=== PATIENT | female | born 1965 | race African-American/Black ===

== ENCOUNTER 2017-10-01 08:12 | Emergency (ER) | payer MEDICAID, OTHER ==
[~2017-10-01] VITALS: Ht 167.6 cm; Wt 55.0 kg
[~2017-10-01 08:12] MED LIST: OTC TYLENOL; VALIUM
[2017-10-01] MEDS ORDERED: IPRATROPIUM/ALBUTEROL 0.5-3(2.5)MG/3ML NEB HHN ONE (08:45)
[2017-10-01] MEDS ORDERED: ASPIRIN 81MG TABLET PO ONE (08:45)
[2017-10-01] MEDS ORDERED: ACETAMINOPHEN 325MG TABLET PO ONE (08:45)
[2017-10-01 09:24] LABS: BASOPHILS % 0.2 % (0.0-2.0); EOSINOPHILS % 0.3 % (0.0-5.0); HEMATOCRIT. 39.5 % (36.0-48.0); HEMOGLOBIN. 12.9 g/dL (12.0-16.0); LYMPHOCYTES % 11.8 % (20.0-50.0); MEAN CORPUSCULAR HEMOGLOBIN 27.9 pg (28.0-32.0); MEAN PLATELET VOLUME 7.7 fl (7.4-10.4); NEUTROPHILS % 80.7 % (40.0-76.0); PLATELET 249 x1000/uL (130-400); RED BLOOD CELL COUNT 4.64 mill/uL (4.2-5.4); RED CELL DISTRIBUTION WIDTH 18.9 % (11.6-14.6)
[2017-10-01 09:31] LABS: CHLORIDE 106 mEq/L (98-107)
[2017-10-01 09:36] LABS: D-DIMER 1.22 mg/L FEU (<0.50); PARTIAL THROMBOPLASTIN TIME 30.1 sec (23.4-31.0); PROTHROMBIN TIME 10.8 sec (9.4-11.6)
[2017-10-01 12:39] LABS: CLARITY URINE CLOUDY (CLEAR); COLOR URINE YELLOW (YELLOW); KETONES URINE TRACE (NEGATIVE); LEUKOCYTE ESTERASE URINE NEGATIVE (NEGATIVE); NITRITE URINE NEGATIVE (NEGATIVE); OCCULT BLOOD URINE 2+ (NEGATIVE); PROTEIN URINE NEGATIVE (NEGATIVE); SPECIFIC GRAVITY URINE 1.009 (1.005-1.030)
[2017-10-01 14:38] VITALS: BP 127/71
[2017-10-01] MEDS ORDERED: IOHEXOL-350 100 ML BOTTLE ONE (15:08)
== END 2017-10-01 14:44 | disposition home or self-care (01) ==
LOC: ER 08:27 → ENRESERV 11:14 → CANRESERV 11:14 → ER 14:44 → CANBEDREQ 19:04
DX: R07.89 Other chest pain (principal); N39.0 Urinary tract infection, site not specified; M79.601 Pain in right arm; D64.9 Anemia, unspecified; F12.10 Cannabis abuse, uncomplicated
CPT/HCPCS: 36415; 71045; 71275; 73030; 80053; 81003; 83880; 84484; 85025; 85379; 85610; 85730; 87040; 87086; 93005; 94640; 99285; J7620; Q9967